=== PATIENT | male | born 1980 | race American Indian/Alaskan Native ===

== ENCOUNTER 2019-06-19 15:55 | Emergency (ER) | payer OTHER ==
[2019-06-19 16:09] VITALS: BP 142/92
--- NOTE | 2019-06-19 16:10 | Emergency Department Report ---
Chief Complaint: Upper Respiratory Infection Stated Complaint: SINUS INFECTION Time Seen by Provider: 06/19/19 16:08 - HPI History of Present Illness: This is a 38 y.o. M. that presents to the ER with sinus pressure and congestion for 1-2 weeks. Reports a history of recurrent sinus infections. Denies chills, fever, cough, night sweats, drooling or hoarseness, nausea, vomiting, chest pain, and SOB. - ROS Review of Systems: CONSTITUTIONAL: Denies fever and chills. Denies weight loss. HEENT: Admits sinus pressure. Denies changes in vision and hearing. RESPIRATORY: Admits to congestion. Denies SOB. CV: Denies palpitations and CP. GI: Denies abdominal pain, nausea, vomiting and diarrhea. MSK: Denies myalgia and joint pain. SKIN: Denies rash and pruritus. NEUROLOGICAL: Denies headache and syncope. PSYCHIATRIC: Denies recent changes in mood. Denies anxiety and depression. - Exam Vital Signs: Vital Signs 06/19/19 16:08 Temperature 98.2 F Pulse Rate 65 Respiratory 16 Rate Blood Pressure 142/92 O2 Sat by Pulse 96 Oximetry Physical Exam: GENERAL: Alert and oriented x 3. No acute distress. Well-nourished. EYES: EOMI. HENT: Erythematous posterior pharynx, uvula midline. Turbinates congested with mucoid discharge. Maxillary sinuses tender on palpation. Moist mucous membranes. No scleral icterus. No cervical lymphadenopathy. LUNGS: Clear to auscultation bilaterally. No accessory muscle use. CARDIOVASCULAR: Regular rate and rhythm. No murmur. No JVD. ABDOMEN: Soft, non-tender and non-distended. EXTREMITIES: No edema. Non-tender. SKIN: No rashes or lesions. Warm. NEUROLOGIC: No focal neurological deficits. CN II-XII grossly intact, but not individually tested. PSYCHIATRIC: Cooperative. Appropriate mood and affect. MSE screening note: Focused history and physical exam performed. Due to findings the following was ordered: ED Medical Decision Making - Medical Decision Making This is a 38-year-old male that presents with sinus pressure and congestion for 2 weeks. Patient is stable was examined by me. Positive maxillary tenderness. Patient is discharged with augmentin and flonase. Patient was instructed not to take antihistamines. Patient was referred to Follow-up with a primary care doctor in 3-5 days or if symptoms worsen and continue return to emergency room as soon as possible. At time of discharge, the patient does not seem toxic or ill in appearance. No acute signs of distress noted. Patient agrees to discharge treatment plan of care. No further questions noted by the patient. ED Disposition for MSE Clinical Impression: Acute maxillary sinusitis Qualifiers: Recurrence: non-recurrent Qualified Code(s): J01.00 - Acute maxillary sinusitis, unspecified Disposition: TO HOME OR SELFCARE Is pt being admited?: No Does the pt Need Aspirin: No Condition: Stable Instructions: Sinusitis (ED) Prescriptions: Amoxicillin/Potassium Clav [Augmentin 875-125 Tablet] 1 each PO DAILY #10 tablet Fluticasone [Flonase] 1 spray NS QDAY #1 bottle Referrals: [facility] [Provider Group] - 3-5 Days [facility], [facility] [Provider Group] - 3-5 Days Forms: Accompanied Note, Work/School Release Form(ED) Time of Disposition: 16:53
== END 2019-06-19 17:13 | disposition home or self-care (01) ==
LOC: ED 15:55
DX: J01.00 Acute maxillary sinusitis, unspecified (principal)